=== PATIENT | female | born 1975 | race Caucasian/White ===

== ENCOUNTER → 2021-11-14 07:58 | Outpatient (CLI) | payer BC, SELFPAY ==
--- NOTE | ~2021-11-14 | MM_ITS ---
EXAMINATION: MM diagnostic [facility] BI w [facility] HISTORY: Probably benign right breast mass reported on 01/15/2019 diagnostic right mammogram and limit ed right breast ultrasound examinations TECHNIQUE: ML, MLO and craniocaudal 3-D tomosynthesis images of both breasts were performed and synth etic 2-D images were generated. CAD analysis was submitted and interpreted. COMPARISON: 01/23/2019 diagnostic right mammogram and limited right breast ultrasound examinations 07/16/2018 bilateral diagnostic mammogram and limited right breast ultrasound BREAST PARENCHYMAL COMPOSITION: There are scattered areas of fibroglandular density. FINDINGS: No suspicious mass or architectural distortion, malignant calcification, skin thickening or retraction or significant new or developing density is detected. IMPRESSION: 1. No mammographic evidence of malignancy 2. Routine mammographic screening is recommended BI-RADS Category 1: Negative Reviewed, dictated and finalized at location A.
== END ==
PROVIDERS: Visit Provider Nurse Practitioner
DX: R92.8 Other abnormal and inconclusive findings on diagnostic imaging of breast (principal)
CPT/HCPCS: 77062; 77066; G0279

== ENCOUNTER → 2022-12-18 07:31 | Outpatient (CLI) | payer BC, SELFPAY ==
--- NOTE | ~2022-12-18 | MM_ITS ---
EXAMINATION: MM screening [facility] BI [facility] HISTORY: Screening mammogram TECHNIQUE: Craniocaudal and mediolateral oblique 3-D tomosynthesis images were obtained and synthetic 2-D images were generated. CAD analysis was submitted and interpreted. COMPARISON: 11/14/2021, 01/23/2019, 07/16/2018, 09/07/2016 BREAST PARENCHYMAL COMPOSITION: There are scattered areas of fibroglandular density. FINDINGS: No suspicious mass, calcification, or architectural distortion are identified in either emil ast to suggest malignancy. There has been no suspicious interval change. IMPRESSION: 1. No mammographic evidence of malignancy. 2. Recommend routine screening mammography in one year. BI-RADS Category 1: Negative Reviewed, dictated and finalized at location A.
== END ==
PROVIDERS: PCP Nurse Practitioner; Visit Provider Nurse Practitioner
DX: Z12.31 Encounter for screening mammogram for malignant neoplasm of breast (principal)
CPT/HCPCS: 77063; 77067

== ENCOUNTER 2024-05-26 15:32 | Outpatient (CLI) | payer BC, SELFPAY ==
--- NOTE | ~2024-05-26 | US_ITS ---
US pelvic complete Ordering provider: Steffi Chacon, History: . Pelvic pain . Comparison: None. Technique: Transabdominal ultrasound of the pelvis (Doppler ultrasound interrogation techniques used as needed for this exam.) FINDINGS: CERVIX: Normal. UTERUS: Measures 6.7x 3.3x 4.2 cm in length which is within normal limits and is anteverted. Hypoech oic area seen in the fundus on the right side measuring 0.8 x 1 x 1.1 cm suggestive of fibroid. ENDOMETRIUM: Normal in thickness measuring 4 mm. (Note: the premenopausal endometrium may measure up to 16 mm when in the secretory phase.) No endometrial masses, cysts or fluid. CUL DE SAC: No free fluid. RIGHT OVARY: Normal in size measuring 2.1x 1.2x 2 cm. Normal echotexture. Doppler vascular flow prese nt. LEFT OVARY: Normal in size measuring 2.2x 2x 2.3 cm. Normal echotexture. Doppler vascular flow presen t. Follicle is seen measuring 1.5 cm. ADNEXA: Normal. No mass. IMPRESSION: Fibroid uterus. Otherwise, normal pelvic ultrasound. Reviewed, dictated and finalized at location A.
== END 2024-05-26 15:33 | disposition home or self-care (01) ==
PROVIDERS: PCP Nurse Practitioner; Visit Provider Nurse Practitioner
DX: R10.2 Pelvic and perineal pain (principal); D25.9 Leiomyoma of uterus, unspecified
CPT/HCPCS: 76856